=== PATIENT | female | born 1995 | race African-American/Black ===

== ENCOUNTER 2017-07-01 11:15 | Emergency (ER) | payer OTHER ==
[~2017-07-01] VITALS: Ht 167.6 cm; Wt 79.0 kg
[2017-07-01 11:17] VITALS: BP 144/82; PULSE 85; RESP 20; TEMP 98.1; O2SAT 100
--- NOTE | 2017-07-01 11:30 | PD ---
Physical Exam Date Seen by Provider: Jul 01, 2017 Time Seen by Provider: 11:28 Narrative 21 Y/O female here with Left Sided Sore Throat and Swelling. mild difficulty swallowing. No Fever or other symptoms. No Dental Pain. Patient is Stable and Awaiting Bed Placement. Data Data Last Documented VS Vital Signs Date Time Temp Pulse Resp B/P (MAP) Pulse Ox O2 Delivery O2 Flow Rate FiO2 07/01/17 11:17 98.1 85 20 144/82 (102) 100 Room Air [facility] Medical Record Reviewed: Yes Supervised Visit with KALIA: Yes Condition: Stable Oniel Nielsen Jul 01, 2017 11:30
--- NOTE | 2017-07-01 13:19 | PD ---
HPI Chief Complaint: ENT Complaint Time Seen by Provider: 13:18 Travel History International Travel<30 days: No Contact w/Intl Traveler<30days: No Traveled to known affect area: No History of Present Illness HPI 21-year-old female presents emergency Department with complaint of left sided throat pain that she woke up with this morning. Denies ear pain, nasal congestion. Denies lump in throat, difficulty swollen, usual drooling. Reports painful swallowing. Denies vomiting, abdominal pain, headache. Has taken Tylenol for symptom management. Symptoms are mild in severity. No known allergies. Has no other medical complaints. No other modifying factors or associated signs and symptoms. PFSH Past Medical History ?: Not LMP: 07/01/17 Social History Alcohol Use: No Tobacco Use: No Substance Use: No Allergies-Medications (Allergen,Severity, Reaction): Coded Allergies: No Known Allergies (Verified Allergy, Unknown, 07/01/17) Reported Meds & Prescriptions Reported Meds & Active Scripts Active Magic Mouthwash Pediatric/Adult Liq (Lidocaine/Diphenhydr/Alum/Mg/Simeth) 60 Ml Susp 5 Ml SWISH-SWAL Q3HR PRN Each 5mL contains: Diphenydramine 4.5mg, Viscous Lidocaine 2% 10mg, Maalox Advanced Regular Strength 2.7ml Ibuprofen 600 Mg Tab 600 Mg PO Q6H PRN Amoxicillin 500 Mg Cap 500 Mg PO BID 10 Days Review of Systems Except as stated in HPI: all other systems reviewed are Neg Physical Exam Narrative GENERAL: Well-nourished, well-developed female patient, in no acute distress; afebrile, nontoxic-appearing SKIN: Warm and dry. No rash. HEAD: Atraumatic. Normocephalic. EYES: Pupils equal and round. No scleral icterus. No injection or drainage. EARS: Bilateral pinnae and external canals appear within normal limits. Left tympanic membrane with erythema, loss of landmarks, and with dullness; without perforation. ENT: Mucosa pink and moist. Oral Pharynx with erythema; 2+ tonsillar edema; without edema or exudates. No uvular edema. No uvular, palatal, or tonsillar deviation. Airway patent. NECK: Trachea midline. Left anterior cervical lymphadenopathy and tenderness on palpation. CARDIOVASCULAR: Regular rate. RESPIRATORY: No accessory muscle use. GASTROINTESTINAL: Rounded. MUSCULOSKELETAL: No obvious deformities. No clubbing. No cyanosis. No edema. NEUROLOGICAL: Awake and alert. Oriented 3. No obvious cranial nerve deficits. Motor grossly within normal limits. Normal speech. Moves all extremities. 5/5 strength to all extremities. PSYCHIATRIC: Appropriate mood and affect; insight and judgment normal. Data Data Last Documented VS Vital Signs Date Time Temp Pulse Resp B/P (MAP) Pulse Ox O2 Delivery O2 Flow Rate FiO2 07/01/17 11:17 98.1 85 20 144/82 (102) 100 Room Air Orders Orders Group A Rapid Strep Screen (07/01/17 13:18) [facility] Medical Decision Making Medical Screen Exam Complete: Yes Emergency Medical Condition: Yes Medical Record Reviewed: Yes Differential Diagnosis Sore throat, viral pharyngitis, strep pharyngitis, otitis media, viral illness; less likely peritonsillar abscess Narrative Course 21-year-old female physical exam consistent with sore throat and left otitis media. Rapid strep ordered and pending. Amoxicillin, Magic mouthwash, ibuprofen prescribed for home. Instructed patient to follow up with primary care provider. Patient verbalizes understanding and agreement with treatment plan. Patient is medically cleared and stable for discharge. Discussed reasons to return to the emergency department. Patient agrees with treatment plan. The patients vital signs are stable and the patient is stable for outpatient follow-up and treatment. Patient discharged home, stable and in no acute distress. Diagnosis Primary Impression: Sore throat Additional Impression: Left otitis media Qualified Codes: H66.92 - Otitis media, unspecified, left ear Referrals: Primary Care Physician Patient Instructions: General Instructions Departure Forms: School Release, Return to School Date: Jul 03, 2017 Tests/Procedures, Work Release Enter return to work date: Jul 03, 2017 Additional Instructions: Take Antibiotics as prescribed and complete full course of antibiotics Throw away and change your toothbrush 24 hours after starting antibiotics Get plenty of sleep/rest Rest your voice Drink plenty of fluids to prevent dehydration Use warm saltwater gargles to soothe throat pain Use an air humidifier/turn off ceiling fans Use throat lozenges as needed for sore throat Use ibuprofen or acetaminophen as needed to relieve pain and fever Follow-up with your primary care provider within 2-4 days Return immediately to the emergency department with worsening of symptoms Med/Other Pt SpecificInfo: Prescription(s) given Scripts Sftytqviomxfnfx-Yazlgbjjv-Eas-Alum-Simeth Liq (Magic Mouthwash Pediatric/Adult Liq) 60 Ml Susp 5 ML SWISH-SWAL Q3HR Y for SORE THROAT, #60 ML 0 Refills Each 5mL contains: Diphenydramine 4.5mg, Viscous Lidocaine 2% 10mg, Maalox Advanced Regular Strength 2.7ml Prov: Winsome Pruett 07/01/17 Ibuprofen (Ibuprofen) 600 Mg Tab 600 MG PO Q6H Y for PAIN, #20 TAB 0 Refills Prov: Winsome Pruett 07/01/17 Amoxicillin (Amoxicillin) 500 Mg Cap 500 MG PO BID for Infection for 10 Days, CAP 0 Refills Prov: Winsome Pruett 07/01/17 Disposition: 01 DISCHARGE HOME Condition: Stable Winsome Pruett Jul 01, 2017 13:19
[2017-07-01] MEDS ORDERED: MAGICPED SWISH-SWAL (13:22)
[2017-07-01] MEDS ORDERED: AMOX500C PO (13:22)
[2017-07-01] MEDS ORDERED: IBUP-232 PO (13:22)
== END 2017-07-01 14:11 | disposition home or self-care (01) ==
LOC: NEPK 11:15
DX: J02.9 Acute pharyngitis, unspecified (principal); H66.92 Otitis media, unspecified, left ear
CPT/HCPCS: 87081; 87880; 99283